=== PATIENT | female | born 1985 ===

== ENCOUNTER → 2019-01-26 | Outpatient (CLI) | payer BC ==
[2019-01-26 11:25] LABS: PLATELET COUNT, AUTOMATED 260 K/uL (150-450)
[2019-01-26 11:49] LABS: LDL CHOLESTEROL 134 mg/dl
== END ==
LOC: LAB 11:04
PROVIDERS: ATTEND Internal Medicine
DX: H53.8 Other visual disturbances (principal); R07.9 Chest pain, unspecified
CPT/HCPCS: 36415; 81001; 82040; 82247; 82310; 82374; 82435; 82465; 82565; 82607; 82947; 83036; 83718; 84075; 84132; 84155; 84295; 84443; 84450; 84460; 84478; 84520; 85025